=== PATIENT | female | born 1995 | race Two or more races ===

== ENCOUNTER → 2022-01-16 | Emergency (ER) | payer OTHER ==
[~2022-01-16] VITALS: Ht 167.6 cm; Wt 54.4 kg
[~2022-01-16] MED LIST: CIPR500T5 PO; METHYLERGONOVINE MALEATE 0.2 MG/ML AMPUL IM ONE; METHYLERGONOVINE MALEATE 0.2 MG/ML AMPUL ONE; METR250T36 PO; Methergine PO
--- NOTE | 2022-01-16 15:10 | NUR ---
biblapd, from [facility], c/o vaginal bleeding x 1 month, G4, P2, A1. Placed comfortably in bed. Vitals checked.
--- NOTE | 2022-01-16 15:10 | NUR ---
Seen by Dr Gustafson at bedside
--- NOTE | 2022-01-16 15:30 | NUR ---
DEXTER done at bedside
[2022-01-16 15:51] LABS: BASOPHILS % (AUTO) 0.7 % (0.0-2.0); EOSINOPHILS % (AUTO) 1.5 % (0.0-6.0); HEMATOCRIT 42 % (33-45); HEMOGLOBIN 14.3 g/dL (11.5-14.8); LYMPHOCYTES # (AUTO) 1.8 K/uL (0.8-4.8); LYMPHOCYTES % (AUTO) 24.1 % (20.0-44.0); MEAN CORPUSCULAR HGB CONC 34 g/dl (31.0-36.0); MEAN CORPUSCULAR VOLUME 91 fL (82-100); MONOCYTES # (AUTO) 0.5 K/uL (0.1-1.30); MONOCYTES % (AUTO) 6.2 % (2.0-12.0); NEUTROPHILS # (AUTO) 4.9 K/uL (1.8-8.9); NEUTROPHILS % (AUTO) 67.5 % (43.0-81.0); PLATELET COUNT (AUTO) 267 K/uL (150-450); RED BLOOD CELL COUNT(AUTO) 4.61 MIL/uL (4.0-5.2); WHITE BLOOD COUNT (AUTO) 7.3 K/uL (4.3-11.0)
--- NOTE | 2022-01-16 16:00 | NUR ---
INSTRUMENTATION TECH AT BEDSIDE
[2022-01-16 16:55] LABS: ALBUMIN 3.3 g/dL (3.4-5.0); BILIRUBIN,DIRECT 0.1 mg/dL (0.0-0.2); BILIRUBIN,TOTAL 0.9 mg/dL (0.2-1.0); CALCIUM, SERUM 9.1 mg/dL (8.5-10.1); CREATININE 0.6 mg/dL (0.6-1.3); POTASSIUM 3.7 mmol/L (3.5-5.1); TOTAL PROTEIN, SERUM 6.8 g/dL (6.4-8.2)
--- NOTE | 2022-01-16 17:28 | NUR ---
METHERGINE GIVEN ORDERED
[2022-01-16 17:36] VITALS: BP 128/64
--- NOTE | 2022-01-16 17:36 | NUR ---
Patient discharged to home in stable condition. Written and verbal after care instructions given. Patient verbalizes understanding of instruction.
== END ==
LOC: ER 15:09
DX: O03.4 Incomplete spontaneous abortion without complication (principal); Z3A.09 9 weeks gestation of pregnancy
CPT/HCPCS: 36415; 76805; 80048; 80076; 84702; 84703; 85025; 85730; 96372; 99291; A6403; J2210